=== PATIENT | female | born 1995 | race African-American/Black ===

== ENCOUNTER 2017-11-26 08:31 | Observation (INO) ==
[2017-11-26] MEDS ORDERED: Famotidine PF Inj 20 MG/2 ML Vial IV.PUSH ONE (09:24)
[2017-11-26 09:50] LABS: Baso % (Auto) 0.8 % (0.0-2.0); Eos % (Auto) 0.8 % (0.0-4.0); Hematocrit 31.2 % (35.0-46.0); Hemoglobin 9.6 gm/dL (11.6-15.3); Lymph # (Auto) 1.1 th/mm3 (1.0-4.8); Mean Corpuscular Volume 78.3 fL (80.0-100.0); Mean Platelet Volume 9.3 fL (7.0-11.0); Mono # (Auto) 0.4 th/mm3 (0.0-0.9); Neut # (Auto) 3.5 th/mm3 (1.8-7.7); Neut % (Auto) 69.4 % (16.0-70.0); Platelet Count 286 th/mm3 (150-450); Red Blood Count 3.98 mil/mm3 (4.00-5.30); Red Cell Distribution Width 20.2 % (11.6-17.2)
[2017-11-26 09:54] LABS: Amphetamine Screen,Urine Neg (Neg); Barbiturate Screen,Urine Neg (Neg); Cannabinoid Screen,Urine Pos (Neg); Cocaine Screen,Urine Neg (Neg); Mean Corpuscular HGB Conc 30.6 % (32.0-36.0)
[2017-11-26 10:00] LABS: Opiate Screen,Urine Neg (Neg)
[2017-11-26 10:16] LABS: Alanine Aminotransferase 19 U/L (10-53); Albumin 4.6 g/dL (3.4-5.0); Alkaline Phosphatase 56 U/L (45-117); Anion Gap 11 meq/L (5-15); Aspartate Aminotransferase 39 U/L (15-37); Blood Urea Nitrogen 9 mg/dL (7-18); Calcium 8.2 mg/dL (8.5-10.1); Carbon Dioxide 22.2 meq/L (21.0-32.0); Chloride 106 meq/L (98-107); Glomerular Filtration Rate Greater Than 89 mL/min (>89); Glucose,Random 103 mg/dL (74-106); Sodium 139 meq/L (136-145); Total Protein 8.4 g/dL (6.4-8.2)
[2017-11-26 10:19] LABS: Potassium 2.9 meq/L (3.5-5.1)
[2017-11-26] MEDS ORDERED: DEXTROSE 5% IV.SIG ONE ×6 (10:39→10:42)
[2017-11-26] MEDS ORDERED: ACETYLCYSTEINE IV.SIG ONE ×6 (10:39→10:42)
[2017-11-26] MEDS ORDERED: WATER IV.SIG ONE ×6 (10:39→10:42)
--- NOTE | 2017-11-26 10:46 | ED ---
HPI General Chief complaint: Overdose Stated complaint: Psych Eval/overdose Time Seen by Provider: 11/26/17 08:58 Source: patient, EMS and RN notes reviewed Mode of arrival: EMS History of Present Illness HPI narrative: 22yF brought in under a [place] Act filed by police for suicidal ideation/ attempt. The patient says that she had an argument with her spouse and attempted to kill herself via overdose. She reports that she took "half a bottle of Midol, half a bottle of Excedrin, and a handful of prescription pain pills" around 3 AM; she does not know the dose, quantity, or formulation of these medications. She denies homicidal ideation or hallucinations, reports a history of depression but does not take medications for this. Family history non-contributory. Related Data Home Medications Medication Instructions Recorded Confirmed No Known Home Medications 11/26/17 11/26/17 Allergies Allergy/AdvReac Type Severity Reaction Status Date / Time No Known Allergies Allergy Uncoded 08/11/15 11:36 Review of Systems ROS: all other systems reviewed are negative PMFSH History History Provided By: Patient Social History Social History Substance History: No History of Abuse Smoking Status: Never smoker How Often Do You Have a Drink Containing Alcohol: 2 to 4 times a month Immunization History Tetanus Immunization: Unsure Exam Const General: healthy appearing [facility] Head: normocephalic and atraumatic Face and sinus: normal facial exam Eyes General: appearance normal, both eyes and all related structures Pupils: PERRL Chest Chest: normal inspection of the chest Resp Effort & Inspection: normal respiratory effort Auscultation: no rhonchi and no wheezes Cardio Rate: regular rate Rhythm: regular rhythm GI Other: Soft and non-tender in all quadrants, no guarding or rebound, no organomegaly Skin General: no rashes or lesions noted and no jaundice Neuro General: alert, awake, oriented x3 and no focal motor deficits Psych Mental Status: mental status grossly normal Speech and Movement: speech and movement normal Affect: blunted Attitude: cooperative Other: Withdrawn, quiet, no agitation, cooperative with exam Course Initial Documented Vital Signs Temperature 99.1 F 11/26/17 08:56 Pulse Rate 81 11/26/17 08:56 Respiratory Rate 18 11/26/17 08:56 Blood Pressure 113/58 L 11/26/17 08:56 Pulse Oximetry 100 11/26/17 08:56 Last Documented Vital Signs Temperature 99.1 F 11/26/17 08:56 Pulse Rate 81 11/26/17 08:56 Respiratory Rate 18 11/26/17 08:56 Blood Pressure 113/58 L 11/26/17 08:56 Pulse Oximetry 100 11/26/17 08:56 Critical Care Time Critical Care Time: Yes Total Critical Care Time: 32 Attestation: Total critical care time 32 minutes. This includes examining and stabilizing the patient, gathering a history from a source other than the patient (i.e., chart review), formulating a differential diagnosis, ordering and interpreting laboratory tests and EKG, discussing the patient's care with other providers (family medicine, poison control center), administration of antidote for toxic overdose, re-evaluation at frequent intervals, and documentation. Amount of time is separate from teaching, counseling the patient and/or family, and exclusive of procedures. Medical Decision Making MDM Narrative Medical decision making narrative: Assessment: 22yF presenting with suicidal ideation/ attempt via overdose Plan: Patient held under Baldwin Act desk monitor Labs, including ASA, APAP, EtOH, UDS Pepcid as patient reports NSAID overdose Addendum: Patient found to have APAP level of 50 with elevated bilirubin and minimally elevated AST. I spoke with Nikia from the Poison Control Center, who recommends 24 hour treatment with N-acetylcysteine as patient already has signs of liver damage from acetaminophen overdose. She also recommends rechecking INR , CMP, and APAP level at 22 hours to determine if patient needs repeat antidote. Case discussed with Dr. Ramirez ( resident), who will see the patient. She will also need psychiatry evaluation and 1:1. Medical Screen Exam Complete: Yes Emergency Medical Condition: Yes Differential Diagnosis Differential Diagnosis: Differential diagnosis includes, but is not limited to: overdose, intoxication, organic disease (thyroid disorder, hypercalcemia), psychiatric disorder Lab Data Result diagrams: 11/26/17 09:25 11/26/17 09:25 POC Results POC Urine Results Negative Lab Results 11/26/17 11/26/17 11/26/17 Range/Units 09:25 09:25 09:25 WBC 5.0 (4.0-11.0) th/mm3 RBC 3.98 L (4.00-5.30) mil/mm3 Hgb 9.6 L (11.6-15.3) gm/dL Hct 31.2 L (35.0-46.0) % MCV 78.3 L (80.0-100.0) fL MCH 24.0 L (27.0-34.0) pg MCHC 30.6 L (32.0-36.0) % RDW 20.2 H (11.6-17.2) % Plt Count 286 (150-450) th/mm3 MPV 9.3 (7.0-11.0) fL Neut % (Auto) 69.4 (16.0-70.0) % Lymph % (Auto) 22.0 (9.0-44.0) % Brooks % (Auto) 7.0 (0.0-8.0) % Eos % (Auto) 0.8 (0.0-4.0) % Baso % (Auto) 0.8 (0.0-2.0) % Neut # (Auto) 3.5 (1.8-7.7) th/mm3 Lymph # (Auto) 1.1 (1.0-4.8) th/mm3 Brooks # (Auto) 0.4 (0.0-0.9) th/mm3 Eos # (Auto) 0.0 (0.0-0.4) th/mm3 Baso # (Auto) 0.0 (0.0-0.2) th/mm3 WBC Differential . Differential Comment Auto diff final Sodium 139 (136-145) meq/L Potassium 2.9 L* (3.5-5.1) meq/L Chloride 106 (98-107) meq/L Carbon Dioxide 22.2 (21.0-32.0) meq/L Anion Gap 11 (5-15) meq/L BUN 9 (7-18) mg/dL Creatinine 0.75 (0.50-1.00) mg/dL Estimated GFR Greater than 89 (>89) mL/min Random Glucose 103 (74-106) mg/dL Calcium 8.2 L (8.5-10.1) mg/dL Magnesium 1.7 (1.5-2.5) mg/dL Total Bilirubin 1.4 H (0.2-1.0) mg/dL AST 39 H (15-37) U/L ALT 19 (10-53) U/L Alkaline Phosphatase 56 (45-117) U/L Total Protein 8.4 H (6.4-8.2) g/dL Albumin 4.6 (3.4-5.0) g/dL TSH 1.600 (0.358-3.740) uIU/mL Salicylates (2.8-20.0) mg/dL Urine Opiates Screen (Neg) Acetaminophen 49.2 H (10.0-30.0) mcg/mL Ur Barbiturates Screen (Neg) Ur Amphetamines Screen (Neg) U Benzodiazepines Scrn (Neg) Urine Cocaine Screen (Neg) U Cannabinoids Screen (Neg) Serum Alcohol Less than 3 (0-5) mg/dL 11/26/17 11/26/17 Range/Units 09:25 09:25 WBC (4.0-11.0) th/mm3 RBC (4.00-5.30) mil/mm3 Hgb (11.6-15.3) gm/dL Hct (35.0-46.0) % MCV (80.0-100.0) fL MCH (27.0-34.0) pg MCHC (32.0-36.0) % RDW (11.6-17.2) % Plt Count (150-450) th/mm3 MPV (7.0-11.0) fL Neut % (Auto) (16.0-70.0) % Lymph % (Auto) (9.0-44.0) % Brooks % (Auto) (0.0-8.0) % Eos % (Auto) (0.0-4.0) % Baso % (Auto) (0.0-2.0) % Neut # (Auto) (1.8-7.7) th/mm3 Lymph # (Auto) (1.0-4.8) th/mm3 Brooks # (Auto) (0.0-0.9) th/mm3 Eos # (Auto) (0.0-0.4) th/mm3 Baso # (Auto) (0.0-0.2) th/mm3 WBC Differential Differential Comment Sodium (136-145) meq/L Potassium (3.5-5.1) meq/L Chloride (98-107) meq/L Carbon Dioxide (21.0-32.0) meq/L Anion Gap (5-15) meq/L BUN (7-18) mg/dL Creatinine (0.50-1.00) mg/dL Estimated GFR (>89) mL/min Random Glucose (74-106) mg/dL Calcium (8.5-10.1) mg/dL Magnesium (1.5-2.5) mg/dL Total Bilirubin (0.2-1.0) mg/dL AST (15-37) U/L ALT (10-53) U/L Alkaline Phosphatase (45-117) U/L Total Protein (6.4-8.2) g/dL Albumin (3.4-5.0) g/dL TSH (0.358-3.740) uIU/mL Salicylates Less than 1.7 L (2.8-20.0) mg/dL Urine Opiates Screen Neg (Neg) Acetaminophen (10.0-30.0) mcg/mL Ur Barbiturates Screen Neg (Neg) Ur Amphetamines Screen Neg (Neg) U Benzodiazepines Scrn Neg (Neg) Urine Cocaine Screen Neg (Neg) U Cannabinoids Screen Pos H (Neg) Serum Alcohol (0-5) mg/dL ECG Data Attestation: I personally reviewed and interpreted this ECG as follows: Interpretation: Rate: 60 BPM Rhythm: Sinus [place]: Normal Intervals: Normal intervals, no blocks, QTc 376 ms Q waves: III, aVF T waves: Upright, no inversions ST segments: No elevations or depressions Impression: Non-specific EKG, no previous EKG available for comparison. Discharge Plan Discharge Disposition Patient Disposition: 30 Still Patient Discharge Condition Condition: Stable Discharge Details Diagnosis: Suicide attempt by substance overdose, Acetaminophen overdose, Hyperbilirubinemia Physicians Team ED Provider: Kriss Spann Rxs /Orders / Referrals /Forms Prescriptions: No Action No Known Home Medications RF: 0 Status ED Status: With Doctor
[2017-11-26 10:51] LABS: Magnesium 1.7 mg/dL (1.5-2.5)
[2017-11-26] MEDS ORDERED: Magnesium Sulfate Inj 2 GM in Sodium Chlor 0.9% Inj 96 ML IV.SIG ONE (10:52)
[2017-11-26] MEDS: Potassium Chlor 20 mEq Premix 20 MEQ/100 ML PIGGYBACK IV.SIG SCH ×2 (10:58→14:45)
[2017-11-26 11:03] LABS: INR 1.1 Ratio; Prothrombin Time 11.6 sec (9.8-11.6)
[2017-11-26] MEDS ORDERED: Bisacodyl 10 MG Supp RECTAL PRN (11:25)
[2017-11-26] MEDS: Sod Chloride 0.9% Inj 1,000 ML IV.CONT SCH (12:00)
--- NOTE | 2017-11-26 13:55 | ECG ---
Date Performed: 11/26/2017 Time Performed: 08:46:52 PTAGE: 22 years EKG: Sinus rhythm WITH SINUS ARRHYTHMIA VOLTAGE CRITERIA FOR LVH NONSPECIFIC T-WAVE ABNORMALITY ABNORMAL ECG INTERPRET ATION BASED ON A DEFAULT AGE OF 39 YEARS NO PREVIOUS TRACING DOCTOR: Mikel Engel Interpretating Date/Time 11/26/2017 13:54:26
[2017-11-26 14:49] LABS: Albumin 4.3 g/dL (3.4-5.0); Anion Gap 9 meq/L (5-15); Aspartate Aminotransferase 22 U/L (15-37); Blood Urea Nitrogen 6 mg/dL (7-18); Calcium 7.8 mg/dL (8.5-10.1); Carbon Dioxide 23.6 meq/L (21.0-32.0); Chloride 107 meq/L (98-107); Glomerular Filtration Rate Greater Than 89 mL/min (>89); Glucose,Random 122 mg/dL (74-106); Potassium 3.3 meq/L (3.5-5.1); Sodium 140 meq/L (136-145)
[2017-11-26 14:53] LABS: Alanine Aminotransferase 29 U/L (10-53); Alkaline Phosphatase 54 U/L (45-117); Total Protein 8.3 g/dL (6.4-8.2)
[2017-11-26] MEDS ORDERED: Zolpidem Tartrate 5 MG Tablet PO PRN (21:00)
[2017-11-27] MEDS: Sod Chloride 0.9% Inj 1,000 ML IV.CONT SCH ×2 (04:33→08:03)
[2017-11-27] MEDS ORDERED: LORazepam 1 MG Tablet PO PRN (06:29)
[2017-11-27] MEDS ORDERED: Haloperidol Inj 5 MG/ML Ampul IV.PUSH PRN (06:29)
[2017-11-27 06:37] LABS: INR 1.2 Ratio; Prothrombin Time 12.2 sec (9.8-11.6)
[2017-11-27 06:58] LABS: Alanine Aminotransferase 22 U/L (10-53); Albumin 3.2 g/dL (3.4-5.0); Alkaline Phosphatase 47 U/L (45-117); Anion Gap 7 meq/L (5-15); Aspartate Aminotransferase 22 U/L (15-37); Blood Urea Nitrogen 3 mg/dL (7-18); Calcium 7.7 mg/dL (8.5-10.1); Carbon Dioxide 22.9 meq/L (21.0-32.0); Chloride 112 meq/L (98-107); Glomerular Filtration Rate Greater Than 89 mL/min (>89); Glucose,Random 83 mg/dL (74-106); Potassium 3.7 meq/L (3.5-5.1); Sodium 142 meq/L (136-145); Total Protein 6.7 g/dL (6.4-8.2)
[2017-11-27 10:23] LABS: Baso # (Auto) 0.1 th/mm3 (0.0-0.2); Baso % (Auto) 1.5 % (0.0-2.0); Eos # (Auto) 0.1 th/mm3 (0.0-0.4); Eos % (Auto) 4.2 % (0.0-4.0); Hematocrit 26.1 % (35.0-46.0); Hemoglobin 8.7 gm/dL (11.6-15.3); Lymph # (Auto) 1.8 th/mm3 (1.0-4.8); Lymph % (Auto) 51.3 % (9.0-44.0); Mean Corpuscular HGB Conc 33.3 % (32.0-36.0); Mean Corpuscular Hemoglobin 25.4 pg (27.0-34.0); Mean Corpuscular Volume 76.4 fL (80.0-100.0); Mean Platelet Volume 9.3 fL (7.0-11.0); Mono # (Auto) 0.3 th/mm3 (0.0-0.9); Mono % (Auto) 8.9 % (0.0-8.0); Neut # (Auto) 1.2 th/mm3 (1.8-7.7); Neut % (Auto) 34.1 % (16.0-70.0); Platelet Count 241 th/mm3 (150-450); Red Blood Count 3.42 mil/mm3 (4.00-5.30); Red Cell Distribution Width 19.8 % (11.6-17.2); White Blood Count 3.5 th/mm3 (4.0-11.0)
== END 2017-11-27 18:58 ==
LOC: NEDA 08:31 → NEPE 08:31 → NEDA 13:07 → NEPHCDU 13:11
PROVIDERS: ADMIT Family Medicine; ATTEND Family Medicine

== ENCOUNTER 2017-11-27 16:38 | Inpatient (IN) ==
[2017-11-28] MEDS: Ibuprofen 600 MG Tablet PO PRN ×2 (08:32→20:40)
--- NOTE | 2017-11-28 15:16 | P.HPPSY ---
Provisional Diagnosis Admission Date: November 27, 2017 19:00 [place] I.: 1. Adjustment disorder with disturbance of emotions and conduct Rule out primary mood disorder [place] II.: 1. Cluster B personality traits Competence Certification of Person's Competence To Provide Express and Informed Consent I have personally examined Sahara Berry, a person being served at [facility] on, November 28, 2017 1516. Express and informed consent means consent voluntarily given in writing, by a competent person, after sufficient explanation and disclosure of the subject matter involved to enable the person to make a knowing and willful decision without any element of force, fraud, deceit, duress, or other form of constraint or coercion. This person is 18 years of age or older, is not now known to be incompetent to consent to treatment with a guardian advocate, and does not have a health care surrogate or proxy currently making medical treatment decisions. I have found this person to be one of the following: [] Competent to provide express and informed consent, as defined above, for voluntary admission to this facility and is competent to provide express and informed consent for treatment. He/she has the consistent capacity to make well reasoned, willful, and knowing decisions concerning his or her medical or mental health treatment. The person fully and consistently understands the purpose of the admission for examination/placement and is fully capable of personally exercising all rights assured [place] [] Incompetent to provide express and informed consent to voluntary admission, and this is incompetent to provide express and informed consent to treatment. The person must be transferred to involuntary status and a petition for a guardian advocate filed with the Circuit Court. [X] Refusing to provide express and informed consent to voluntary admission but is competent to provide express and informed consent for treatment. The person must be discharged or transferred to involuntary status. Form shall be completed within 24 hours of a person's arrival at the receiving facility and filed in the clinical record of each person: 1. Admitted on a voluntary basis 2. Permitted to provide express and informed consent to his/her own treatment 3. Allowed to transfer from involuntary to voluntary status 4. Prior to permitting a person to consent to his or her own treatment after having been previously found incompetent to consent to treatment. History of Present Illness Capacity: Has capacity Chief Complaint: Overdose History of Present Illness: From my consultation note of yesterday: Ms. Berry is a 22-year-old female with no reported past psychiatric history, who was brought into the ED under a Baldwin Act by [place] [employer], alleging that the patient overdosed on various pills due to feeling lonely. Overdose included Midol, Aleve, and omeprazole. Peak Tylenol level on presentation here was 49.2. Salicylate undetectable. Reviewing the electronic medical record, I see no previous psychiatric contact within our system. The patient has been placed in observation for management of her overdose. The patient seen and examined. Chart reviewed. Case discussed with nurse in the CDU. A sitter is at the bedside. The patient reports that she impulsively overdosed on half a bottle each of Aleve, Midol, and omeprazole. She says that she had been in a verbal argument with her girlfriend and was upset at her girlfriend's treatment of her. She says that she made the overdose in the bathroom without girlfriend's knowledge. She says that after the overdose, she told her roommate and also called her mom. The patient began to feel physically badly and called an ambulance herself. She says that her son was out of the house at the time. She is happy to have survived her overdose. She denies suicidal or homicidal ideation ongoing, although it is unclear whether she is reliable to contract for safety. I can elicit no depressive or hypomanic/manic symptoms now; although the patient does say, "when I go through things I feel depressed." She denies audiovisual hallucinations. No delusional material. Remainder of the psychiatric ROS is negative. No acute physical complaints. PAST PSYCHIATRIC HISTORY: The patient denies a history of psychiatric diagnosis. She denies a history of inpatient or outpatient psychiatric treatment. She denies a history of suicide attempts. FAMILY HISTORY: The patient reports that her maternal grandmother had anger issues and her mother has attempted suicide in the past. CHEMICAL DEPENDENCY HISTORY: The patient denies any abuse of drugs or alcohol. SOCIAL HISTORY: Patient reports that she lives with her girlfriend, Mackenzie, as well as her roommate and the patient's 3-year-old son. She has a grade 11 education. 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 She denies any or legal history. Denies any access to guns or firearms. Denies any muslim or spiritual beliefs. Denies any history of trauma. On my examination today, 11/28: Patient seen and examined with nurse. Chart reviewed. Case discussed with nursing staff. On my examination today, the patient presents as oppositional. She is tearful and dysphoric. She admits to feeling depressed and says that "I always felt like I had an issue with anger." She displays prominent cluster B, chiefly borderline personality traits. She notes that there is a family history of depression and bipolar disorder. She denies any suicidal or homicidal ideation. No psychotic material. She is discharged focused. Remainder of the psychiatric ROS is negative. No acute physical complaints besides some nausea. Historical details obtained above are unchanged today. - Inpatient Certification I certify that the inpatient services were ordered in accordance with Medicare regulations governing the order. This includes certification that hospital inpatient services are reasonable and necessary and in the case of services not specified as inpatient-only under 42 CFR 419.22(n), that they are appropriately provided as inpatient services in accordance to with the 2-midnight benchmark under 43 CFR 412.3(e) I certify that inpatient psychiatric hospital services are medically necessary. Evaluation and treatment and/or diagnostic testing are expected to improve the patient's condition. The patient needs on a daily basis, active treatment furnished directly by or requiring the supervision of inpatient psychiatric facility personnel. Review of Systems All other systems reviewed negative except as stated in HPI PMFSH - History History Provided By: Patient - Tobacco History Second Hand Smoke Exposure: No Smoking Status: Never smoker - Alcohol History How Often Do You Have a Drink Containing Alcohol: 2 to 3 times a week - Substance Use History Substance History: Active Abuse - Substance Use Type Marijuana Status: Active Frequency: 1 blunt per day Reason for Use: Calm Down Comment: Patient states the marijuana helps to ease her anger/aggression and "calm me down". Quality Measures - Patient Strengths Patient's strengths (minimum of 2): In a monitored setting. Verbally fluent. Medications and Allergies Active Medications: Active Medications Diphenhydramine HCl (Benadryl) 50 mg PO Q6H PRN PRN Reason: For mild anxiety and/or EPS Diphenhydramine HCl (Benadryl Inj) 50 mg IM Q6H PRN PRN Reason: For mild anxiety and/or EPS Diphenhydramine HCl (Benadryl Inj) 50 mg IM Q6H PRN PRN Reason: For mild anxiety and/or EPS Ibuprofen (Motrin) 600 mg PO Q8H PRN PRN Reason: PAIN SCALE 1-10 Last Admin: 11/28/17 08:32 Dose: 600 mg Allergies Allergy/AdvReac Type Severity Reaction Status Date / Time No Known Allergies Allergy Uncoded 08/11/15 11:36 Home Medications Medication Instructions Recorded Confirmed Type No Known Home Medications 11/26/17 11/26/17 History Results - Labs Labs: Laboratory Tests 11/26/17 11/26/17 11/27/17 09:25 09:25 06:08 WBC Hgb Plt Count Sodium 142 Potassium 3.7 Chloride 112 H Carbon Dioxide 22.9 BUN 3 L Creatinine 0.64 Random Glucose 83 AST 22 ALT 22 Alkaline Phosphatase 47 U Cannabinoids Screen Pos H Serum Alcohol Less than 3 11/27/17 06:08 WBC 3.5 L Hgb 8.7 L Plt Count 241 Sodium Potassium Chloride Carbon Dioxide BUN Creatinine Random Glucose AST ALT Alkaline Phosphatase U Cannabinoids Screen Serum Alcohol Patient has chronic microcytic anemia. EKG in CDU revealed normal QTc. Exam Vital signs: Vital Signs 11/28/17 05:44 Temperature 98 F Pulse Rate 58 L Respiratory Rate 17 Blood Pressure 117/62 Pulse Oximetry 98 Narrative: Physical examination was completed by hospitalist in the CDU. On my examination today, the patient appears to be in no acute physical distress. No motor abnormalities noted. Labs and vital signs reviewed. Mental Status Examination Appearance: Appropriate Consciousness: Alert Orientation: Person, Place (At least) Motor Activity: Other (No motor abnormalities noted) Speech: Unremarkable Language: Adequate Fund of Knowledge: Adequate Attention and Concentration: Adequate Memory: Unremarkable (Grossly intact on clinical exam) Mood: Other (Dysphoric) Affect: Other (Tearful, restricted) Thought Process & Associations: Intact Thought Content: Appropriate Hallucination Type: None Delusion Type: None Suicidal Ideation: No Suicidal Plan: No Suicidal Intention: No Homicidal Ideation: No Homicidal Plan: No Homicidal Intention: No Insight: Fair Judgment: Impulsive Assessment and Plan - Assessment (1) Adjustment disorder with mixed disturbance of emotions and conduct Code(s): F43.25 - Adjustment disorder with mixed disturbance of emotions and conduct Status: Acute - Plan Plan: 22-year-old female with psychiatric history as detailed above who presents in transfer from the CDU following polydrug overdose. Patient's insight into the gravity in severity of overdose seems poor and she is quite discharged focused at this time. She does admit to some issues with mood instability and anger, and I do suspect significant underlying cluster B personality pathology. I will plan to admit the patient to the inpatient psychiatric unit for safety, observation and medication management. Admit inpatient. Patient is presently declining to consent for voluntary admission, involuntary status. I have completed first opinion. Consult for second opinion. Patient retains capacity to consent for medications. I have discussed pharmacologic options with the patient and we settle on a trial of Abilify, to be started at 2 mg at bedtime tonight. Atarax as needed for anxiety. Benadryl as needed for sleep. R/B/A for medications discussed with patient. Patient does take an iron supplement at home reportedly, and I will continue iron supplementation here. Vitals every shift. Counselor to see. Collateral information. Disposition planning. Estimated length of stay: 3-5 days. Justification for Continued Inpatient Stay: Monitoring for impairments in safety Discharge Planning: Pending outcome of observation Request Healthcare Surrogate/Guardian Advocate?: No
--- NOTE | 2017-11-28 15:31 | P.TTN ---
- Patient Problems Problems: 1. Discharge planning 2. Medication compliance 3. Knowledge deficit 4. Lack of coping skills - Progress Toward Goals Provider Present: Dr. Diamond Rush (new to the unit, presents with a Tylenol overdose after some issues in her relationship) Nurse Input: Brandon: out of the room, discharge focused, no behavioral issues Psychiatric Counselors Present: Shruthi Johnston LCSW Psychiatric Therapist Input: not met yet, but patient is visible in the milieu and appears discharge oriented - Documentation Teaching Recipient: Patient
[2017-11-28] MEDS ORDERED: Aluminum/Magnesium/Simethacone Susp 30 ML UDC PO PRN (16:27)
[2017-11-28] MEDS: Ferrous Sulfate 325 MG Tablet PO SCH (19:32)
[2017-11-28] MEDS ORDERED: ARIPiprazole 2 MG Tablet PO SCH (21:00)
[2017-11-29 06:22] VITALS: RESP 16
[2017-11-29 07:45] LABS: Chol/HDL Ratio 2.5 Ratio; HDL Cholesterol 49.9 mg/dL (40.0-60.0)
[2017-11-29 07:49] VITALS: BP 127/67; PULSE 58; TEMP 98.6; O2SAT 99
--- NOTE | 2017-11-29 12:16 | P.CONPSY ---
Provisional Diagnosis Admission Date: November 27, 2017 19:00 [place] I.: 1. Adjustment disorder with disturbance of emotions and conduct Rule out primary mood disorder [place] II.: 1. Cluster B personality traits History of Present Illness Service: Psychiatry Primary Care Provider: UNKNOWN History of Present Illness: The patient is a 22-year-old -[place] woman, domiciled with her girlfriend and 5 years old son, employed, with no reported past psychiatric history, no previous psychiatric hospitalizations, no previous suicide attempts , who was brought into the ED under a [place] Act by [place] [employer] , alleging that the patient overdosed on various pills due to feeling lonely. Overdose included Midol, Aleve, and omeprazole. Peak Tylenol level on presentation here was 49.2. Salicylate undetectable. Patient was consulted to me for second opinion. Recommendation was reviewed. Chart was reviewed. On my psychiatric evaluation for the patient is calm, cooperative, pleasant. The patient reports that in an episode of anger and frustration she overdosed with suicidal intentions. He says that she had an argument with her girlfriend, but now she feels much better. She reports that she has been having issues managing her anxiety and frustration for years. This is the first time that she tried to commit suicide. The patient is open for psychotherapy and treatment. At this moment she denies suicidal and homicidal ideation, she denies visual and auditory hallucinations. PMFSH - History History Provided By: Patient - Tobacco History Second Hand Smoke Exposure: No Smoking Status: Never smoker - Alcohol History How Often Do You Have a Drink Containing Alcohol: 2 to 3 times a week - Substance Use History Substance History: Active Abuse - Substance Use Type Marijuana Status: Active Frequency: 1 blunt per day Reason for Use: Calm Down Comment: Patient states the marijuana helps to ease her anger/aggression and "calm me down". Medications and Allergies Active Medications: Active Medications Al Hydrox/Mg Hydrox/Simethicone (Mag-Al Plus Susp Liq) 30 ml PO Q6H PRN PRN Reason: DYSPEPSIA Al Hydroxide/Mg Hydroxide (Milk Of Magnesia Liq) 30 ml PO Q12H PRN PRN Reason: Mild Constipation Aripiprazole (Abilify) 2 mg PO HS REMI Last Admin: 11/28/17 20:34 Dose: 2 mg Diphenhydramine HCl (Benadryl) 50 mg PO HS PRN PRN Reason: INSOMNIA Last Admin: 11/28/17 20:41 Dose: 50 mg Ferrous Sulfate (Ferosul) 325 mg PO BID@1200,1700 REMI Last Admin: 11/28/17 19:32 Dose: Not Given Hydroxyzine HCl (Atarax) 50 mg PO Q6H PRN PRN Reason: ANXIETY Ibuprofen (Motrin) 600 mg PO Q8H PRN PRN Reason: PAIN SCALE 1-10 Last Admin: 11/28/17 20:40 Dose: 600 mg Allergies Allergy/AdvReac Type Severity Reaction Status Date / Time No Known Allergies Allergy Uncoded 08/11/15 11:36 Home Medications Medication Instructions Recorded Confirmed Type No Known Home Medications 11/26/17 11/26/17 History Exam Vital signs: Vital Signs 11/29/17 06:21 11/29/17 07:48 Temperature 98.4 F 98.6 F Pulse Rate 59 L 58 L Respiratory Rate 16 16 Blood Pressure 112/55 L 127/67 Pulse Oximetry 98 99 Intake & Output 11/28/17 11/29/17 11/29/17 18:59 06:59 18:59 Intake Total 240 / 240 Balance 240 / 240 Intake: Oral 240 / 240 Mental Status Examination Appearance: Appropriate Consciousness: Alert Orientation: Person, Place (At least) Motor Activity: Other (No motor abnormalities noted) Speech: Unremarkable Language: Adequate Fund of Knowledge: Adequate Attention and Concentration: Adequate Memory: Unremarkable (Grossly intact on clinical exam) Mood: Other (Dysphoric) Affect: Other (Tearful, restricted) Thought Process & Associations: Intact Thought Content: Appropriate Hallucination Type: None Delusion Type: None Suicidal Ideation: No Suicidal Plan: No Suicidal Intention: No Homicidal Ideation: No Homicidal Plan: No Homicidal Intention: No Insight: Fair Judgment: Impulsive Assessment and Plan - Assessment (1) Adjustment disorder with mixed disturbance of emotions and conduct Code(s): F43.25 - Adjustment disorder with mixed disturbance of emotions and conduct Status: Acute - Plan Plan: I have seen and examined this patient, reviewed documentation, I agree and concur with Dr. Rush assessment and plan. Consult appreciated Justification for Continued Inpatient Stay: Continue admission. Request Healthcare Surrogate/Guardian Advocate?: No
[2017-11-29 12:42] LABS: Hemoglobin A1c 4.9 % (4.3-6.0)
--- NOTE | 2017-11-29 12:52 | P.DSPSY ---
Psychiatry Discharge Summary Inpatient Psychiatric care?: Yes Advance Directives: No Mental Health Advance Directive: No Health Care Proxy: No - Admission Admission Date: November 27, 2017 19:00 - Admission Diagnosis (1) Adjustment disorder with mixed disturbance of emotions and conduct Code(s): F43.25 - Adjustment disorder with mixed disturbance of emotions and conduct Brief History: From my consultation note of yesterday: Ms. Berry is a 22-year-old female with no reported past psychiatric history, who was brought into the ED under a [place] Act by [place] [employer], alleging that the patient overdosed on various pills due to feeling lonely. Overdose included Midol, Aleve, and omeprazole. Peak Tylenol level on presentation here was 49.2. Salicylate undetectable. Reviewing the electronic medical record, I see no previous psychiatric contact within our system. The patient has been placed in observation for management of her overdose. The patient seen and examined. Chart reviewed. Case discussed with nurse in the CDU. A sitter is at the bedside. The patient reports that she impulsively overdosed on half a bottle each of Aleve, Midol, and omeprazole. She says that she had been in a verbal argument with her girlfriend and was upset at her girlfriend's treatment of her. She says that she made the overdose in the bathroom without girlfriend's knowledge. She says that after the overdose, she told her roommate and also called her mom. The patient began to feel physically badly and called an ambulance herself. She says that her son was out of the house at the time. She is happy to have survived her overdose. She denies suicidal or homicidal ideation ongoing, although it is unclear whether she is reliable to contract for safety. I can elicit no depressive or hypomanic/manic symptoms now; although the patient does say, "when I go through things I feel depressed." She denies audiovisual hallucinations. No delusional material. Remainder of the psychiatric ROS is negative. No acute physical complaints. PAST PSYCHIATRIC HISTORY: The patient denies a history of psychiatric diagnosis. She denies a history of inpatient or outpatient psychiatric treatment. She denies a history of suicide attempts. FAMILY HISTORY: The patient reports that her maternal grandmother had anger issues and her mother has attempted suicide in the past. CHEMICAL DEPENDENCY HISTORY: The patient denies any abuse of drugs or alcohol. SOCIAL HISTORY: Patient reports that she lives with her girlfriend, Mackenzie, as well as her roommate and the patient's 3-year-old son. She has a grade 11 education. 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 She denies any or legal history. Denies any access to guns or firearms. Denies any zoroastrianism or spiritual beliefs. Denies any history of trauma. On my examination today, 11/28: Patient seen and examined with nurse. Chart reviewed. Case discussed with nursing staff. On my examination today, the patient presents as oppositional. She is tearful and dysphoric. She admits to feeling depressed and says that "I always felt like I had an issue with anger." She displays prominent cluster B, chiefly borderline personality traits. She notes that there is a family history of depression and bipolar disorder. She denies any suicidal or homicidal ideation. No psychotic material. She is discharged focused. Remainder of the psychiatric ROS is negative. No acute physical complaints besides some nausea. Historical details obtained above are unchanged today. Tobacco Use In Past 30 Days: No How Often Do You Have a Drink Containing Alcohol: 2 to 3 times a week Hospital Course: Patient was admitted to a locked, inpatient psychiatric unit. Appropriate precautions were in place throughout patient's hospital stay. Patient was seen and examined on the unit by psychiatry and also visited by counselor. Psychotropic medications were adjusted. Patient tolerated medication changes well without side effects. There was no evidence of any suicidality or homicidality on the inpatient unit. There was no evidence of self-care deficit. Counselor has obtained reassuring collateral from the patient's partner. Counselor also reports that partner has secured the home environment and made arrangements to watch over the patient continuously upon her return home. On the day of discharge: Patient seen and examined with nurse. Chart reviewed. Case discussed with nursing staff. No behavioral issues noted overnight. Case discussed with counselor. On my examination today, the patient is requesting discharge from the inpatient psychiatric unit today. She denies any suicidal or homicidal ideation, intent or plan. Mood is reportedly improved today and I can elicit no severe depressive or hypomanic/manic symptoms. She denies any audiovisual hallucinations. I can elicit no delusional material. She denies side effects from medications and feels that the Abilify is worth continuing. No physical complaints. 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 There is no evidence of imminent risk of harm to self or others, nor is there evidence of self-care deficit to support involuntary psychiatric hospitalization. There is some degree of chronic unpredictability secondary to cluster B personality style, which would not be ameliorated by a longer inpatient psychiatric hospital stay. We will bolster the patient's protective factors by referring her for outpatient psychiatric services. Patient will be discharged today with psychiatric follow-up as arranged by counselor. Patient is also to follow up with primary care. I have counseled the patient to abstain from substances of abuse. I have counseled the patient to return to the psychiatric emergency room for any concerning symptoms as part of a general safety plan. - Discharge Discharge Date: 11/29/17 - Discharge Diagnosis (1) Adjustment disorder with mixed disturbance of emotions and conduct Diagnosis: Principal Code(s): F43.25 - Adjustment disorder with mixed disturbance of emotions and conduct Status: Resolved Discharge Disposition: Home - Discharge Instructions Discharge Diet: Regular Diet Activities You Can Perform: Weight Bearing As Tolerat - Discharge Time <= 30 minutes Mental Status Examination Appearance: Appropriate Consciousness: Alert Orientation: x4 Motor Activity: Normal gait, Other (No motor abnormalities noted) Speech: Unremarkable Language: Adequate Fund of Knowledge: Adequate Attention and Concentration: Adequate Memory: Unremarkable (Grossly intact on clinical exam) Mood: Appropriate Affect: Appropriate, Euthymic Thought Process & Associations: Intact Thought Content: Appropriate Hallucination Type: None Delusion Type: None Suicidal Ideation: No Suicidal Plan: No Suicidal Intention: No Homicidal Ideation: No Homicidal Plan: No Homicidal Intention: No Mental Status Exam Remarks: Insight and judgment are fair. Discharge/Advance Care Plan - Results Vital Signs: Last Vital Signs Temp 98.6 F 11/29/17 07:48 Pulse 58 L 11/29/17 07:48 Resp 16 11/29/17 07:48 BP 127/67 11/29/17 07:48 Pulse Ox 99 11/29/17 07:48 Lab Results: Abnormal Lab Results 11/29/17 11/29/17 06:11 06:11 Hemoglobin A1c 4.9 Triglycerides 67 Cholesterol 125 LDL Cholesterol, Calc 62 HDL Cholesterol 49.9 Cholesterol/HDL Ratio 2.50 Laboratory Results Hemoglobin A1c 4.9 % (4.3-6.0) 11/29/17 06:11 Triglycerides 67 mg/dL (42-150) 11/29/17 06:11 Cholesterol 125 mg/dL (120-200) 11/29/17 06:11 LDL Cholesterol, Calc 62 mg/dL (0-99) 11/29/17 06:11 HDL Cholesterol 49.9 mg/dL (40.0-60.0) 11/29/17 06:11 Summary of Procedures: None done Pending Results: None - Medications Number of antipsychotic medications at discharge: 1 - Discharge Care Plan Goals to Promote Your Health: * To prevent worsening of your condition and complications * To maintain your health at the optimal level Directions to Meet Your Goals: Take your medications as prescribed Follow your dietary instruction Follow activity as directed Keep your appointments as scheduled Take your immunizations and boosters as scheduled If your symptoms worsen call your PCP, if no PCP go to Urgent Care Center or Emergency Room For 03/10 questions related to your inpatient stay or results of tests pending at discharge, please contact Dr. Mitchell Rush MD at Smoking is Dangerous to Your Health. Avoid second hand smoking
[2017-11-29] MEDS: Ferrous Sulfate 325 MG Tablet PO SCH (12:55)
== END 2017-11-29 16:00 | disposition home or self-care (01) ==
LOC: H260 19:00
PROVIDERS: ADMIT Psychiatry & Neurology Psychiatry; ATTEND Psychiatry & Neurology Psychiatry
CPT/HCPCS: Q0163